=== PATIENT | female | born 1995 | race Hispanic/Latino ===

== ENCOUNTER → 2020-01-03 | Outpatient (CLI) | payer MEDICAID | END | disposition home or self-care (01) | LOC: RAH 13:54 | PROVIDERS: ATTEND Obstetrics & Gynecology | DX: M79.662 Pain in left lower leg (principal) | CPT/HCPCS: 93971 ==

== ENCOUNTER 2021-09-16 11:57 | Emergency (ER) | payer MEDICAID ==
[2021-09-16 11:58] VITALS: BP 125/84
[2021-09-16] MEDS ORDERED: SOLU-MEDROL 125MG VIAL IVP ONE (13:00)
[2021-09-16] MEDS ORDERED: FAMOTIDINE 20MG TAB PO ONE (13:00)
[2021-09-16] MEDS ORDERED: GENT5DRO32 OS (13:41)
[2021-09-16] MEDS ORDERED: FAMO-136 PO (13:41)
[2021-09-16] MEDS ORDERED: CETI1SOL17 PO (13:41)
[2021-09-16] MEDS ORDERED: PRED20TA3 PO (13:41)
== END 2021-09-16 13:54 | disposition home or self-care (01) ==
LOC: EDH 11:57
DX: R13.10 Dysphagia, unspecified (principal); T36.8X5A Adverse effect of other systemic antibiotics, initial encounter; H10.9 Unspecified conjunctivitis; Z20.822 Contact with and (suspected) exposure to COVID-19; F41.9 Anxiety disorder, unspecified; Z79.899 Other long term (current) drug therapy; Y92.89 Other specified places as the place of occurrence of the external cause
CPT/HCPCS: 87635; 87880; 96374; 99283; C9803; J2930